=== PATIENT | female | born 1930 | race Caucasian/White ===

== ENCOUNTER 2017-07-17 16:50 | Emergency (ER) | payer MEDICARE, MEDICAID ==
[2017-07-17 18:01] LABS: #Basophils 0.1 thou/uL (0.0-0.2); #Eosinphils 0.2 thou/uL (0.0-0.7); #Lymphocytes 2.7 thou/uL (1.20-3.40); #Monocytes 1.1 thou/uL (0.11-0.59); #Neutrophils 4.7 thou/uL (1.40-6.50); %Basophils 0.8 % (0.0-1.0); %Eosinophils 2.5 % (0.0-10.0); %Lymphocytes 30.6 % (21.0-51.0); %Monocytes 12.3 % (0.0-10.0); %Neutrophils 53.8 % (42.0-75.0); Mean Corpuscular HGB CONC 33.2 g/dL (32.0-36.0); Mean Corpuscular Hemoglobin 30.9 pg (27.0-31.0); Mean Corpuscular Volume 93.3 fl (81.0-99.0); Mean Platelet Volume 7.1 fL (7.4-10.4); Platelet Count 219 thou/uL (130-400); RBC Distribution Width 13.2 % (11.5-14.5); Red Blood Cell (RBC) Count 4.19 mill/uL (4.20-5.40); White Blood Cell (WBC) Count 8.8 thou/uL (4.8-10.8)
[2017-07-17 18:20] LABS: CKMB 2.3 ng/mL (0-6.6); Troponin I 0.025 ng/mL (< 0.028)
[2017-07-17 18:23] LABS: ALT (SGPT) 17 U/L (8-55); AST (SGOT) 23 U/L (5-34); Alkaline Phosphatase 60 U/L (40-150); Anion Gap 12 mmol/L (10-20); BUN (Urea Nitrogen) 19 mg/dL (9.8-20.1); Bilirubin, Total 0.2 mg/dL (0.2-1.2); Calc. Creatinine Clearance 0 mL/min (70-130); Calcium 9.3 mg/dL (7.8-10.44); Carbon Dioxide 24 mmol/L (23-31); Chloride 105 mmol/L (98-107); Estimated GFR-MDRD 55; Globulin 4.2 g/dL (2.4-3.5); Glucose 85 mg/dL (83-110); Potassium 4.3 mmol/L (3.5-5.1); Protein, Total 7.2 g/dL (6.0-8.3); Sodium 137 mmol/L (136-145)
[2017-07-17 20:06] LABS: Bilirubin Negative (Negative); Blood, Urine Negative (Negative); Clarity CLEAR (Clear); Glucose, Urine (Dipstick) Negative (Negative); Leukocyte Negative (Negative); Nitrite Negative (Negative); Protein, Urine (Dipstick) Negative (Neg-Trace); Specific Gravity, Urine 1.016 (1.002-1.036); Urobilinogen 0.2 mg/dL (0.2-1.0); pH, Urine 7.5 (5.0-9.0)
--- NOTE | 2017-07-17 20:08 | RAD ---
CHEST ONE VIEW 07/17/17 HISTORY: Emergency exam. Low blood pressure. COMPARISON: Chest radiograph 2013. FINDINGS: Multiple calcified granulomas over the right lung base. There is nodularity right upper lobe as well as left lower lobe. Chronic pleural and parenchymal changes. Degenerative changes of the lumbar spine . Mild blunting right lateral costophrenic sulcus. IMPRESSION: 1. Mild blunting right lateral costophrenic sulcus with faint peripheral opacity may be chronic in nature versus low volume consolidation. 2. Numerous small nodules over the chest. Majority of these are similar. POS: [facility]
--- NOTE | 2017-07-31 21:50 | EKG ---
Test Reason : Blood Pressure : / mmHG Vent. Rate : 070 BPM Atrial Rate : 070 BPM P-R Int : 124 ms QRS Dur : 158 ms QT Int : 418 ms P-R-T Axes : 227 -47 071 degrees QTc Int : 451 ms AV dual-paced rhythm Abnormal ECG Confirmed by CRYSTAL GRAY ([id number]), associate entertainment editor BRENTON JOHNSTON ([id number] on 07/31/2017 9:49:59 PM Referred By: YARI GRAY Confirmed By:CRYSTAL GRAY
== END 2017-07-17 22:10 | disposition home or self-care (01) ==
LOC: ERS 16:50
DX: E86.0 Dehydration (principal); I95.9 Hypotension, unspecified; D64.9 Anemia, unspecified; I10 Essential (primary) hypertension; E11.9 Type 2 diabetes mellitus without complications; K21.9 Gastro-esophageal reflux disease without esophagitis; I48.91 Unspecified atrial fibrillation; F03.90 Unspecified dementia, unspecified severity, without behavioral disturbance, psychotic disturbance, mood disturbance, and anxiety; F32.9 Major depressive disorder, single episode, unspecified; E78.5 Hyperlipidemia, unspecified
CPT/HCPCS: 36415; 51701; 71045; 80053; 81003; 82553; 83880; 84484; 85025; 93005; A4353

== ENCOUNTER 2018-01-23 14:36 | Emergency (ER) | payer MEDICARE, MEDICAID ==
--- NOTE | 2018-01-23 16:41 | CT ---
CT HEAD WITHOUT CONTRAST: Technique: Multiple axial tomograms were obtained through the head without IV enhancement. History: Fall. Mental status change. FINDINGS: Cortical atrophy consistent with age. Moderate chronic ischemic changes, consistent with age. No evidence of intracranial hemorrhage. No mass, edema, or infarct identified. Sinuses and mastoids a re well aerated. There is a small scalp hematoma over the left frontal bone. No underlying skull fracture. IMPRESSION: 1. Scalp hematoma over the left frontal bone. 2. No acute intracranial process. POS: [facility]
--- NOTE | 2018-01-23 17:24 | RAD ---
AP CHEST: History: Fall with trauma and injury. Comparison: 07-17-17 FINDINGS: Lungs appear clear. No pneumothorax or infiltrate identified. Heart size is normal. Vascular intersti tial markings mildly prominent. IMPRESSION: No acute process seen on this portable projection. POS: [facility]
--- NOTE | 2018-01-23 17:39 | RAD ---
AP PELVIS: History: Pain. Fall with injury to pelvis. Comparison: 11-20-07 FINDINGS: The pelvis appears intact. Deformity of the right inferior ramus is stable from prior exam suggesting old injury. Femoral heads appear normally maintained. IMPRESSION: No fracture identified. POS: [facility]
--- NOTE | 2018-01-23 17:48 | RAD ---
LEFT ELBOW: History: Fall with injury, pain. FINDINGS: Linear lucency seen involving the medial epicondyle of the distal humerus. I cannot exclude a fractur e although this may be artifact from skin folds. Oblique view should be obtained for further evaluati on. IMPRESSION: Question fracture medial epicondyle distal humerus. Oblique view should be obtained to further evalua te the left elbow. POS: [facility]
== END 2018-01-23 22:10 | disposition home or self-care (01) ==
LOC: ERS 14:36
DX: S42.442A Displaced fracture (avulsion) of medial epicondyle of left humerus, initial encounter for closed fracture (principal); I10 Essential (primary) hypertension; D64.9 Anemia, unspecified; I48.91 Unspecified atrial fibrillation; E11.42 Type 2 diabetes mellitus with diabetic polyneuropathy; F32.9 Major depressive disorder, single episode, unspecified; Z79.82 Long term (current) use of aspirin; Z79.899 Other long term (current) drug therapy; W19.XXXA Unspecified fall, initial encounter
CPT/HCPCS: 24560; 70450; 71045; 72170